=== PATIENT | female | born 1980 | race African-American/Black ===

== ENCOUNTER 2023-11-20 03:26 | Emergency (ER) | payer MEDICAID ==
[~2023-11-20] VITALS: Ht 165.1 cm; Wt 99.5 kg
[2023-11-20 03:46] VITALS: BP 112/90; PULSE 67; RESP 18; O2SAT 100
== END 2023-11-20 05:35 | disposition left against medical advice (07) ==
LOC: ER 03:26
DX: M25.512 Pain in left shoulder (principal); Z53.21 Procedure and treatment not carried out due to patient leaving prior to being seen by health care provider